=== PATIENT | male | born 1990 ===

== ENCOUNTER 2020-10-24 21:03 | Emergency (ER) | payer BC ==
[~2020-10-24] VITALS: Ht 172.7 cm; Wt 114.9 kg
--- NOTE | 2020-10-24 21:28 | NUR ---
PT C/O COUGHING CONSTANTLY AND COUGHING UP YELLOWISH PHLEGM SINCE THURSDAY NIGHT. REPORTS BODY ACHES AND CHILLS IN ADDITION TO A SORE THROAT. PT RESTING ON GURNEY, PLACE ON MONITOR FOR SPO2/BP. PT NAD, DENIES ADDITIONAL NEEDS AT THIS TIME. CALL LIGHT ON LAP, BED IN LOWEST, RAILS ENGAGED.WCTM
--- NOTE | 2020-10-24 21:30 | NUR ---
IMTIAZ PA AT BS FOR EVAL AND POC. NO CHANGE IN CONDITION
[2020-10-24 22:24] VITALS: BP 131/72
--- NOTE | 2020-10-24 22:40 | NUR ---
PT REQUESTING PHONE NUMBER [phone] BE USED FOR RESULTS. Patient given discharge instructions and they have confirmed that they understand the instructions. Patient ambulatory with steady gait. NAD, DENIES ADDITIONAL NEEDS, ALL QUESTIONS ANSWERED APPROPRIATELY. NO PERSONAL BELONGINGS LEFT IN ROOM AFTER DC
== END 2020-10-24 22:41 | disposition home or self-care (01) ==
LOC: ED 22:00
DX: J18.0 Bronchopneumonia, unspecified organism (principal); Z20.822 Contact with and (suspected) exposure to COVID-19; R00.0 Tachycardia, unspecified
CPT/HCPCS: 71045; 87635; 93005; 99285